=== PATIENT | male | born 1985 ===

== ENCOUNTER 2021-11-26 17:42 | Emergency (ER) | payer OTHER ==
[~2021-11-26] VITALS: Ht 185.4 cm; Wt 92.5 kg
[2021-11-27 01:16] VITALS: BP 139/88
== END 2021-11-27 05:44 | disposition home or self-care (01) ==
LOC: EEVIPCON 17:42 → ER 17:42
DX: J18.9 Pneumonia, unspecified organism (principal); Z20.822 Contact with and (suspected) exposure to COVID-19
CPT/HCPCS: 36415; 71046; 87426